=== PATIENT | female | born 2000 | race Caucasian/White ===

== ENCOUNTER 2019-10-22 18:46 | Emergency (ER) | payer BC ==
[2019-10-22] MEDS ORDERED: ONDANSETRON HCL INJ/PF 4 MG/2 ML SDV IV ONE (19:50)
[2019-10-22] MEDS ORDERED: RINGERS SOLUTION,LACTATED 1,000 ML IV ONE (19:50)
--- NOTE | 2019-10-22 19:54 | ER Document Report ---
ED GI/ - General Mode of Arrival: Ambulatory Information source: Patient TRAVEL OUTSIDE OF THE [place] IN LAST 30 DAYS: No <NICO HEDRICK - Last Filed: 10/22/19 22:08> <EMERSON MCGOWAN - Last Filed: 10/23/19 02:25> - General Chief Complaint: Abdominal Pain Stated Complaint: ABDOMINAL PAIN Time Seen by Provider: 10/22/19 19:20 Primary Care Provider: [facility] [Provider Group] - 10/24/19 CHAVA VARELA PA-C [Primary Care Provider] - Follow up as needed Notes: 19-year-old female with no previous medical problems presents to the emergency room complaining of intermittent worsening abdominal pain for the past 2 weeks. States [facility] well as with an EMERGENCY SERVICE WORKER diagnosed with UTI treated with antibiotics. Pain is persistent. Complains of nausea but no vomiting, no urinary symptoms. Denies any vaginal discharge, no vaginal bleeding. No fevers, recently traveled here from [place] last Thursday due to her dad's . No known exposure to COVID-19. (NICO HEDRICK) - Related Data Allergies/Adverse Reactions: No Known Allergies Allergy (Unverified 10/22/19 19:49) Past Medical History - General Information source: Patient - Social History Smoking Status: Current Every Day Smoker Chew tobacco use (# tins/day): No Frequency of alcohol use: None Drug Abuse: Marijuana Family History: Reviewed & Not Pertinent Patient has homicidal ideation: No Neurological Medical History: Reports: Hx Migraine Past Surgical History: Reports: Hx Appendectomy, Hx Nose Surgery, Hx Oral Surgery <NICO HEDRICK - Last Filed: 10/22/19 22:08> Review of Systems - Review of Systems Constitutional: No symptoms reported Cardiovascular: No symptoms reported Respiratory: No symptoms reported Gastrointestinal: Abdominal pain, Nausea. denies: Vomiting Genitourinary: No symptoms reported Female Genitourinary: No symptoms reported Skin: No symptoms reported Neurological/Psychological: No symptoms reported -: Yes All other systems reviewed and negative <NICO HEDRICK - Last Filed: 10/22/19 22:08> Physical Exam - General General appearance: Appears well, Alert In distress: Mild - HEENT Head: Normocephalic, Atraumatic Eyes: Normal Pupils: PERRL - Respiratory Respiratory status: No respiratory distress Chest status: Nontender Breath sounds: Normal Chest palpation: Normal - Cardiovascular Rhythm: Tachycardia Heart sounds: Normal auscultation Murmur: No - Abdominal Inspection: Normal Distension: No distension Bowel sounds: Normal Tenderness: Tender - She is mild tenderness noted to the right pelvic region. No guarding, no rebound.. No: McBurney's point, Basilio's sign, Guarding, Rebound Organomegaly: No organomegaly - Back Back: Normal, Nontender. No: CVA tenderness - Neurological Neuro grossly intact: Yes Cognition: Normal Orientation: AAOx4 Eduarda Coma Scale Eye Opening: Spontaneous [place] Coma Scale Verbal: Oriented Eduarda Coma Scale Motor: Obeys Commands Eduarda Coma Scale Total: 15 Speech: Normal Motor strength normal: LUE, RUE, LLE, RLE Sensory: Normal - Skin Skin Temperature: Warm Skin Moisture: Dry Skin Color: Normal <NICO HEDRICK - Last Filed: 10/22/19 22:08> - Vital signs Vitals: Temp Pulse Resp BP Pulse Ox 99.0 F 128 H 16 109/69 96 10/22/19 18:55 10/22/19 18:55 10/22/19 18:55 10/22/19 18:55 10/22/19 18:55 Course - Laboratory Result Diagrams: 10/22/19 19:58 10/22/19 19:58 <NICO HEDRICK - Last Filed: 10/22/19 22:08> - Laboratory Result Diagrams: 10/22/19 19:58 10/22/19 19:58 - Diagnostic Test Radiology reviewed: Image reviewed, Reports reviewed <EMERSON MCGOWAN - Last Filed: 10/23/19 02:25> - Re-evaluation Re-evalutation: 10/22/19 22:07 She is resting comfortably she is in no acute distress. Decreased pain. Reviewed lab results with patient. Aware CT is pending. 10/22/19 22:07 Patient's care was transferred to Emerson Mcgowan nurse practitioner, reviewed physical exam positive findings over CT results are pending. (NICO HEDRICK) 10/23/19 02:24 The results were discussed with patient before she was discharged. As well as her labs. Patient was started on Bactrim for her urinary tract infection. I did discuss the labs and CT as well as the ultrasound with EMERGENCY SERVICE WORKER who stated that the patient did not need to stay in the hospital she could be treated with Bactrim for her UTI and be discharged home to follow-up with EMERGENCY SERVICE WORKER on Thursday. Patient stated she had been to [facility] in the past and would go back on Thursday as instructed. Patient was discharged home. (EMERSON MCGOWAN) - Vital Signs Vital signs: Temp Pulse Resp BP Pulse Ox 98.6 F 82 15 114/75 100 10/23/19 00:29 10/23/19 00:29 10/23/19 00:29 10/23/19 00:29 10/23/19 00:29 - Laboratory Laboratory results interpreted by me: 10/22/19 10/22/19 19:58 19:59 WBC 15.1 H Absolute Neuts (auto) 11.3 H Urine Protein 100 H Ur Leukocyte Esterase LARGE H Urine Ascorbic Acid 20 H Discharge <NICO HEDRICK - Last Filed: 10/22/19 22:08> <EMERSON MCGOWAN - Last Filed: 10/23/19 02:25> - Discharge Clinical Impression: Complex cyst of right ovary UTI (urinary tract infection) Qualifiers: Urinary tract infection type: acute cystitis Hematuria presence: with hematuria Qualified Code(s): N30.01 - Acute cystitis with hematuria Condition: Stable Disposition: HOME, SELF-CARE Additional Instructions: Ovarian Cyst Your examination shows the presence of an ovarian cyst. This is a ball of fluid attached to the ovary. Ovarian cysts in women of child-bearing age are usually innocent. However, the cyst may cause pain when it grows or bursts. An innocent ovarian cyst will usually go away by itself. When the cyst becomes painful, you should rest. Pain medication may be required. Some women find a hot water bottle soothing. The pain usually resolves within one or two days. After menopause, an ovarian cyst may mean a tumor, and requires more aggressive evaluation -- usually surgery is recommended to remove or biopsy the cyst. A very large cyst requires evaluation at any age. Most cysts (even the innocent ones) require follow-up examination. Call the doctor or return at any time if the pain increases significantly, if you become faint, or if you experience vaginal bleeding. URINARY TRACT INFECTION: Your evaluation indicates that you have a urinary tract infection. This is due to germs growing in the bladder. This is a common problem. This infection usually responds quickly to antibiotics. Your antibiotic should be taken exactly as prescribed. Drink plenty of fluids -- three to four quarts a day. Occasionally, a bladder anesthetic will be prescribed to help stop the feeling of urgency until the antibiotic has a chance to clear the infection. This may cause your urine to be dark orange. Certain urine infections require a culture. If the doctor obtained a culture, the results will be back in two days. You should call to see if a change in treatment is needed. A repeat urinalysis after you finish treatment is often recommended. The physician will let you know if further testing is required. Call the doctor if you develop fever, chills, flank pain, inability to urinate, or blood in the urine. TRIMETHOPRIM-SULFA: You have been given a prescription for trimethoprim-sulfa (TMS, Septra, Bactrim). This is a combination antibiotic of the sulfa class, often used for urinary tract infections, middle ear infections, bronchitis, shigella intestinal infection, and Pneumocystis pneumonia. TMS is usually well-tolerated. Occasional side effects include nausea and decreased appetite. Septra is not recommended for infants less than two months of age. Do not take this medication if you have experienced severe side effects or allergy to sulfa medicine. You should stop this medicine at once and contact your physician if you develop any rash, joint pain, shortness of breath, bruising, or jaundice (yellow color in the skin), or if you develop any other new or unusual symptoms. Oral Narcotic Medication You have been given a Mpax dispense pack for pain control. This medication is a narcotic. It's best taken with food, as nausea can result if taken on an empty stomach. Don't operate machinery or drive within six hours of taking this medication. Do not combine this medicine with alcohol, or with any medication which can cause sedation (such as cold tablets or sleeping pills) unless you get permission from the physician. Narcotics tend to cause constipation. If possible, drink plenty of fluids and eat a diet high in fiber and fruits. FOLLOW-UP CARE: If you have been referred to a physician for follow-up care, call the physicians office for an appointment as you were instructed or within the next two days. If you experience worsening or a significant change in your symptoms, notify the physician immediately or return to the Emergency Department at any time for re-evaluation. Prescriptions: Sulfamethoxazole/Trimethoprim [Bactrim Ds Tablet] 1 each PO BID #20 tablet Referrals: CHAVA VARELA PA-C [Primary Care Provider] - Follow up as needed [facility] [Provider Group] - 10/24/19
[2019-10-22 20:09] LABS: ABSOLUTE BASOPHILS # (AUTO) 0.1 10^3/uL (0.0-0.2); ABSOLUTE EOSINOPHILS # (AUTO) 0.3 10^3/uL (0.0-0.6); ABSOLUTE LYMPHOCYTES (AUTO) 2.1 10^3/uL (0.5-4.7); ABSOLUTE MONOCYTES (AUTO) 1.4 10^3/uL (0.1-1.4); ABSOLUTE NEUT (AUTO) 11.3 10^3/uL (1.7-8.2); BASOPHILS % (AUTO) 0.4 % (0-2); HEMATOCRIT 39.8 % (36.0-47.0); HEMOGLOBIN 13.8 g/dL (12.0-15.5); LYMPHOCYTES % (AUTO) 13.7 % (13-45); MEAN CORPUSCULAR HEMOGLOBIN 30.3 pg (27.0-33.4); MEAN CORPUSCULAR HGB CONC 34.6 g/dL (32.0-36.0); MEAN CORPUSCULAR VOLUME 87 fl (80-97); MONOCYTES % (AUTO) 9.2 % (3-13); PLATELET COUNT 296 10^3/uL (150-450); RED BLOOD COUNT 4.56 10^6/uL (3.72-5.28); RED CELL DISTRIBUTION WIDTH 12.9 % (11.5-14.0); SEGMENTED NEUTROPHILS % (AUTO) 74.7 % (42-78); TOTAL CELLS COUNTED % (AUTO) 100 %; WHITE BLOOD COUNT 15.1 10^3/uL (4.0-10.5)
[2019-10-22 20:31] LABS: ALBUMIN 4.5 g/dL (3.5-5.0); ALKALINE PHOSPHATASE 77 U/L (38-126); ANION GAP 9 (5-19); ASPARTATE AMINO TRANSFERASE 21 U/L (14-36); BILIRUBIN,TOTAL 0.4 mg/dL (0.2-1.3); BLOOD UREA NITROGEN 10 mg/dL (7-20); CALCIUM 9.6 mg/dL (8.4-10.2); CARBON DIOXIDE 29 mmol/L (22-30); CHLORIDE 102 mmol/L (98-107); GLUCOSE 98 mg/dL (75-110); TOTAL PROTEIN 7.9 g/dL (6.3-8.2)
[2019-10-22 20:35] LABS: APPEARANCE,URINE CLOUDY; BILIRUBIN,URINE NEGATIVE (NEGATIVE); COLOR,URINE YELLOW; GLUCOSE, URINE NEGATIVE (NEGATIVE); KETONES,URINE NEGATIVE (NEGATIVE); LEUKOCYTE ESTERASE,URINE LARGE (NEGATIVE); NITRITE,URINE NEGATIVE (NEGATIVE); PROTEIN,URINE 100 mg/dL (NEGATIVE); UROBILINOGEN,URINE NEGATIVE mg/dL (<2.0)
[2019-10-22] MEDS ORDERED: KETOROLAC TROMETHAMINE INJ/PF 30 MG/1 ML SDV IV ONE (20:37)
--- NOTE | 2019-10-22 22:07 | RADIOLOGY REPORT (SQ) ---
EXAM DESCRIPTION: CT ABDOMEN PELVIS WITH IV CONTRAST COMPLETED DATE/TME: 10/22/2019 20:36 CLINICAL HISTORY: 19 years, Female, abdominal pain COMPARISON: None. TECHNIQUE: Images stored on PACS. All CT scanners at this facility use dose modulation, iterative reconstruction, and/or weight based dosing when appropriate to reduce radiation dose to as low as reasonably achievable (ALARA). [facility]: Dose Right [facility]: CareDose [facility]: Dose Right [facility]: Teradose 4D [facility]: [employer] LIMITATIONS: None. EXAM DESCRIPTION: CLINICAL HISTORY: abdominal pain COMPARISON: None Available TECHNIQUE: Contiguous axial images of the abdomen and pelvis were obtained after the administration of intravenous contrast followed by reconstruction images.This exam was performed according to our departmental dose-optimization program, which includes automated exposure control, adjustment of the mA and/or kV according to patient size and/or use of iterative reconstruction technique. FINDINGS: There is a complex partially cystic septated appearing right adnexal mass measuring 46 mm. There is enlargement of the pancreatic tail, which is of indeterminate significance. Mass is not entirely excluded but this is more likely normal for this patient. There is a duplicated right renal collecting system. There are scattered shotty mesenteric lymph nodes. There is a probable cyst of the right kidney. There is colonic diverticulosis. There is mild soft tissue stranding of the fat surrounding the rectum suggesting inflammation. The liver, spleen, pancreas and kidneys are otherwise within normal limits. There is no hydronephrosis. The gallbladder is unremarkable. Adrenal glands are within normal limits. Aorta is normal in caliber and tapering. No significant free fluid. No free air. No bowel obstruction. There is no stranding of the mesenteric fat. The appendix is not well seen but there is no clear evidence of appendicitis. IMPRESSION: There is a complex heterogeneous partially septated cystic 4.6 cm indeterminate right adnexal mass lesion. Recommend prompt follow-up with pelvic US. Reference: J Am Dhiraj Radiol 2013;10:675-681 Possible rectal inflammation. No other acute intra-abdominal abnormality
--- NOTE | 2019-10-22 23:42 | RADIOLOGY REPORT (SQ) ---
EXAM DESCRIPTION: US PELVIS COMPLETED DATE/TME: 10/22/2019 22:09 CLINICAL HISTORY: 19 years, Female, pelvic pain COMPARISON: CT today's date TECHNIQUE: Emergent ultrasound of the pelvis LIMITATIONS: None. FINDINGS: The uterus measures 9.2 x 3.6 x 4.3 cm. The myometrium is homogenous. Endometrium measures 6.8 mm in thickness. The right ovary measures 7 x 4 x 4 cm, the left 2.4 x 2 x 2 cm. Arterial and venous flow to each ovary. There is a 3.8 x 3.5 cm complex cystic lesion of the right ovary which has low-level internal echoes and may reflect hemorrhagic cyst or endometrioma. There is an immediately adjacent 3.2 x 2.7 x 2.1 cm complex right ovarian cyst which could reflect dermoid and has internal areas of increased echogenicity. No free fluid. IMPRESSION: Complex right ovarian cystic lesions, as above. Recommend dedicated follow-up with multiphasic MRI. Recommendations for f/u of ovarian complex cysts (1): Endometrioma: <= 7 cm: US f/u 6-12 wks. If not surgically resected, US f/u annually. >7 cm: Consider MR w/IVC or surgical evaluation. If not surgically resected, US f/u annually. Dermoid: <= 5 cm: MR w/IV contrast. If not surgically resected, US f/u annually. >5 cm: Surgical evaluation. If not surgically resected, MR w/IVC; then US f/u annually Indeterminate cyst - multiple thin <=3 mm septations: Any size in any age: Consider surgical evaluation. Indeterminate cyst - non-hyperechoic nodule w/o blood flow: Any size in any age: Consider MR w/IVC or surgical evaluation. Indeterminate cyst - other, not classic for but suggestive of hemorrhagic cyst, endometrioma or dermoid: Pre-menopause: <= 7 cm: US f/u 6-12 weeks. If unchanged, continue f/u with US or consider MR w/IVC. If these do not confirm endometrioma or dermoid, consider surgical evaluation. >7 cm: Consider MR w/IVC or surgical evaluation. Post-menopause (>=1 year from last menstrual period): Any size: Consider surgical evaluation. Cyst worrisome for malignancy (thick, irregular >=3 mm septations or nodule with blood flow): Any size in any age: Consider surgical evaluation. (1) Recommendations based upon the 2010 SRU Consensus Conference Statement on the Management of Asymptomatic Ovarian and Other Adnexal Cysts Imaged at US: Radiology. 2009;256(3):946-54 copyright 2011 [employer]- All Rights Reserved
[2019-10-23] MEDS ORDERED: DOXYCYCLINE HYCLATE 100 MG TABLET PO ONE (00:05)
[2019-10-23] MEDS ORDERED: HYDROCODONE/ACETAMINOPHEN 5-325 MG (6 TAB/ER DISP) PO PRN (00:05)
[2019-10-23] MEDS ORDERED: SULFAMETHOXAZOLE/TRIMETHOPRIM 800-160 MG TABLET PO ONE (00:08)
[2019-10-23 00:30] VITALS: BP 114/75
== END 2019-10-23 00:30 | disposition home or self-care (01) ==
LOC: ER 18:46
DX: N83.291 Other ovarian cyst, right side (principal); N30.01 Acute cystitis with hematuria; R10.9 Unspecified abdominal pain; R11.0 Nausea; F17.200 Nicotine dependence, unspecified, uncomplicated
CPT/HCPCS: 99284; 96361; 96374; 96375; 36415; 83690; 85025; 81025; 80053; 81001; 76856; 93976; 74177; J1885; J2405; J7120; 87086